=== PATIENT | female | born 1960 | race Caucasian/White ===

== ENCOUNTER 2019-05-13 10:05 | Outpatient (CLI) | payer BC ==
[~2019-05-13] VITALS: Ht 167.6 cm; Wt 56.4 kg
[2019-05-13 10:30] VITALS: BP 107/72
[2019-05-13 11:04] LABS: CALCIUM 8.8 mg/dL (8.5-10.1); CREATININE 0.93 mg/dL (0.55-1.02)
[2019-05-13] MEDS ORDERED: ZOLEDRONIC ACID 5MG/100ML 100 ML IV ONE (12:00)
== END 2019-05-13 23:59 | disposition home or self-care (01) ==
LOC: INFUSION 10:05
PROVIDERS: ATTEND Obstetrics & Gynecology
DX: M81.0 Age-related osteoporosis without current pathological fracture (principal); M89.9 Disorder of bone, unspecified
CPT/HCPCS: 36415; 36591; 82310; 82565; 96365; J3489